=== PATIENT | female | born 2005 | race Caucasian/White ===

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

== ENCOUNTER 2025-05-15 18:29 | Emergency (ER) | payer BC, SELFPAY ==
[2025-05-15] VITALS (22 sets, daily range): BP systolic 117–146; BP diastolic 50–71; PULSE 86–122; RESP 13–19; TEMP 36.8; O2SAT 96–100
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
[2025-05-15 18:47] LABS: Abs Immature Grans 0.02 10^3/uL (0.0-0.06); HCT 39.1 % (36.0-46.0); HGB 13.4 g/dL (11.2-15.7); Immature Grans % 0.2 %; MCH 30.6 pg (27.0-33.0); MCHC 34.3 % (32.0-36.0); MCV 89 fL (80-95); MPV 10.6 fL (8.0-11.0); Platelet Count 290 10^3/uL (130-400); RBC 4.38 10^6/uL (3.93-5.22); RDW 12.5 % (11.7-14.6); RDW-SD 41.1 fL; WBC 8.89 10^3/uL (4.4-10.8)
[2025-05-15] MEDS: fentaNYL 100 MCG/2 ML VIAL 50 MCG IVP (18:52)
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
[2025-05-15] MEDS: ACETAMINOPHEN 1,000 MG/100 ML BAG 400 MG IVPB (18:54)
[2025-05-15] MEDS: Omnipaque 350 MG/ML 100 ML BTL IJ (18:54)
[2025-05-15] MEDS: Normal Saline - Diluent 50 ML VIAL IJ (18:55)
[2025-05-15 19:01] LABS: INR 1.0 (0.9-1.1); Prothrombin Time 9.6 sec (9.1-11.1)
[2025-05-15 19:02] LABS: HCG Qual (Serum) Negative
[2025-05-15 19:11] LABS: ALT 37 U/L (14-59); AST 55 U/L (15-37); Albumin 4.1 g/dL (3.4-5.0); Alkaline Phosphatase 55 U/L (46-116); Anion Gap 11.1 mmol/L (3-11); BUN 7 mg/dL (7-18); Bilirubin, Total 0.5 mg/dL (0.2-1.0); CO2 24.9 mmol/L (21.0-32.0); Calcium 8.7 mg/dL (8.5-10.1); Chloride 105 mmol/L (98-107); Estimated GFR 126.90 (mL/min/1.73m2); Glucose 99 mg/dL (74-106); Potassium 4.0 mmol/L (3.5-5.1); Sodium 141 mmol/L (136-145); Total Protein 7.3 g/dL (6.4-8.2)
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
[2025-05-15 20:11] LABS: Glucose Negative (Negative)
[2025-05-15] MEDS: Ketorolac 15 MG/ML VIAL IVP (20:12)
[2025-05-15 20:18] LABS: C & S Indicated? No; RBC 0-2 HPF (0-2); WBC Negative HPF (0-5)
[2025-05-15 20:30] LABS: Cannabinoids THC Negative (Negative); METHADONE URINE SCREEN Negative (Negative)
== END 2025-05-15 21:29 | disposition home or self-care (01) ==
PROVIDERS: Emergency Provider Emergency Medicine; PCP Internal Medicine
DX: S16.1XXA Strain of muscle, fascia and tendon at neck level, initial encounter (principal); S06.0XAA Concussion with loss of consciousness status unknown, initial encounter; F10.920 Alcohol use, unspecified with intoxication, uncomplicated; V49.9XXA Car occupant (driver) (passenger) injured in unspecified traffic accident, initial encounter
CPT/HCPCS: 99285; 99284; 36415; 96375; 74177; 76604; 76705; 80053; 80307; 86850; 86900; 86901; 93308; 96365; 70450; 70486; 71260; 72125; 80320; 81003; 81015; 84703; 85025; 85610; J0131; J1885; J3010; J3490